=== PATIENT | female | born 1955 | race Caucasian/White ===

== ENCOUNTER → 2016-09-28 | Outpatient (CLI) | payer OTHER ==
[2016-09-28 12:07] LABS: HEMOGLOBIN 12.7 g/dL (11.7-16.4)
[2016-09-28 12:18] LABS: BLOOD UREA NITROGEN 14 mg/dL (7-18)
[2016-09-28 12:33] LABS: ASPARTATE AMINO TRANSFERASE 13 U/L (15-37)
== END | disposition home or self-care (01) ==
LOC: LAB 11:42
PROVIDERS: ATTEND Obstetrics & Gynecology
DX: E03.8 Other specified hypothyroidism (principal); R53.83 Other fatigue; R19.7 Diarrhea, unspecified
CPT/HCPCS: 36415; 80053; 80061; 84439; 84443; 84481; 85025

== ENCOUNTER → 2018-05-05 | Outpatient (CLI) | payer OTHER | END | disposition home or self-care (01) | LOC: CFH 07:10 | PROVIDERS: ATTEND Obstetrics & Gynecology | DX: Z12.31 Encounter for screening mammogram for malignant neoplasm of breast (principal) | CPT/HCPCS: 77067 ==

== ENCOUNTER → 2019-06-01 | Outpatient (CLI) | payer OTHER ==
[~2019-06-01] MED LIST: ASPI-496 PO; CHOL400T10 PO; ESTR0.5T PO; FEXO180T15 PO; FLUT9.9S NS; LACT1CAP37 PO; NIAC250T7 PO; ONDA4TAB7 PO; OXYC-306 PO; THYR60TA PO; VIT1CAPS42 PO; VITA200C7 PO; VITAMIN B TD
[2019-06-01 11:11] LABS: BASOPHILS # (AUTO) 0.03 x10^3/uL (0-0.1); BASOPHILS % (AUTO) 1 % (0-1); EOSINOPHILS # (AUTO) 0.05 x10^3/uL (0-0.4); EOSINOPHILS % (AUTO) 1 % (1-7); LYMPHOCYTES # (AUTO) 1.32 x10^3/uL (1-3.4); LYMPHOCYTES % (AUTO) 27 % (22-44); MD NO; MEAN CORPUSCULAR HEMOGLOBIN 32.8 pg (27.0-34.8); MEAN CORPUSCULAR HGB CONC 32.8 g/dL (32.4-35.8); MEAN PLATELET VOLUME 7.3 fL (7.4-10.4); MONOCYTES # (AUTO) 0.28 x10^3/uL (0.2-0.8); MONOCYTES % (AUTO) 6 % (2-9); NEUTROPHILS % (AUTO) 66 % (42-75); PLATELET COUNT 272 x10^3/uL (130-400); RED BLOOD COUNT 3.89 x10^6/uL (3.82-5.3); RED CELL DISTRIBUTION WIDTH 13.2 % (9.6-15.2)
[2019-06-01 11:23] LABS: ALANINE AMINOTRANSFERASE 27 U/L (12-78); ALBUMIN 3.5 g/dL (3.4-5.0); ANION GAP 8 mmol/L (5-15); CALCIUM 8.9 mg/dL (8.5-10.1); CHLORIDE 107 mmol/L (98-107); CREATININE 0.83 mg/dL (0.55-1.02)
[2019-06-01 11:25] LABS: ALKALINE PHOSPHATASE 73 U/L (45-117); BILIRUBIN,TOTAL 0.4 mg/dL (0.2-1.0)
== END | disposition home or self-care (01) ==
LOC: STAR 10:08
PROVIDERS: ATTEND Specialist
DX: N95.0 Postmenopausal bleeding (principal); Z90.710 Acquired absence of both cervix and uterus
CPT/HCPCS: 36415; 71046; 80053; 85025; 86304; 93005

== ENCOUNTER 2019-06-05 11:05 | Day surgery (SDC) | payer OTHER ==
[~2019-06-05] VITALS: Ht 172.7 cm; Wt 74.3 kg
[~2019-06-05 11:05] MED LIST changes: -ESTR0.5T PO; -FLUT9.9S NS; -ONDA4TAB7 PO; -OXYC-306 PO
[2019-06-05] MEDS ORDERED: LACTATED RINGERS 1,000 ML IV SCH (12:16)
[2019-06-05] MEDS ORDERED: FLUT9.9S NS (12:21)
[2019-06-05] MEDS ORDERED: ESTR0.5T PO (12:21)
[2019-06-05] MEDS ORDERED: CEFOTETAN PMX 2GM/50ML 50 ML IV ONE (13:00)
[2019-06-05] MEDS ORDERED: FENTANYL PF 250 MCG/5ML ONE (16:12)
[2019-06-05] MEDS ORDERED: MIDAZOLAM 1 MG/ML, 2ML ONE (16:12)
[2019-06-05] MEDS ORDERED: PROPOFOL 10 MG/ML, 20ML ONE (16:14)
[2019-06-05] MEDS ORDERED: DEXAMETHASONE 4 MG/ML, 1ML ONE (16:14)
[2019-06-05] MEDS ORDERED: SUGAMMADEX 200 MG/2 ML IVPush ONE (16:14)
[2019-06-05] MEDS ORDERED: ONDANSETRON 2MG/ML, 2ML ONE (16:14)
[2019-06-05] MEDS ORDERED: LIDOCAINE-MPF 2% ,5ML ONE (16:14)
[2019-06-05] MEDS ORDERED: ROCURONIUM 10MG/ML,5ML ONE (16:14)
[2019-06-05] MEDS ORDERED: BUPIVACAINE/PF 0.25% ONE (16:43)
[2019-06-05] MEDS ORDERED: PHENYLEPHRINE 10 MG/ML ONE (17:21)
[2019-06-05] MEDS ORDERED: KETOROLAC 30 MG/1 ML ONE (18:21)
[2019-06-05] MEDS ORDERED: ACETAMINOPHEN 325 MG TABLET PO PRN (18:30)
[2019-06-05] MEDS ORDERED: FENTANYL PF 100 MCG/2ML IV PRN (18:30)
[2019-06-05] MEDS ORDERED: PROMETHAZINE 25 MG/ML, 1ML IV PRN (18:30)
[2019-06-05] MEDS ORDERED: HYDROmorphone 2 MG/ML, 1ML IVPush PRN (18:30)
[2019-06-05] MEDS ORDERED: hydrALAzine 20 MG/ML, 1ML IV PRN (18:30)
[2019-06-05] MEDS ORDERED: MEPERIDINE/PF 25MG/ML,1ML IVPush PRN (18:30)
[2019-06-05] MEDS ORDERED: OXYcodone 5 MG/5 ML ORAL.SOL UDC PO PRN (18:30)
[2019-06-05] MEDS ORDERED: OXYcodone 5 MG/5 ML ORAL.SOL UDC ONE (19:11)
[2019-06-05] MEDS ORDERED: FENTANYL PF 100 MCG/2ML ONE (19:27)
[2019-06-05] MEDS ORDERED: OXYC-306 PO (21:00)
[2019-06-05] MEDS ORDERED: ONDA4TAB7 PO (21:01)
== END 2019-06-05 22:05 | disposition home or self-care (01) ==
LOC: OUT 11:05 → 3WST 19:50 → OUT 22:05
PROVIDERS: ATTEND Specialist
DX: N95.0 Postmenopausal bleeding (principal); N84.0 Polyp of corpus uteri; N88.2 Stricture and stenosis of cervix uteri; N80.0 Endometriosis of uterus; N94.89 Other specified conditions associated with female genital organs and menstrual cycle; G47.33 Obstructive sleep apnea (adult) (pediatric); E03.9 Hypothyroidism, unspecified; K21.9 Gastro-esophageal reflux disease without esophagitis; G50.0 Trigeminal neuralgia; Z79.890 Hormone replacement therapy; Z79.899 Other long term (current) drug therapy; Z88.5 Allergy status to narcotic agent; Z88.8 Allergy status to other drugs, medicaments and biological substances; Z98.890 Other specified postprocedural states
CPT/HCPCS: 36415; 58552; 86850; 86900; 86923; 88307; 88331; J1100; J1885; J2250; J2370; J2405; J2704; J3010; J3490; J7120; S2900; G0378

== ENCOUNTER → 2020-01-18 | Outpatient (CLI) | payer OTHER, MEDICARE ==
[~2020-01-18] MED LIST changes: +ESTR0.5T PO; +FLUT9.9S NS; +ONDA4TAB7 PO; +OXYC-306 PO
== END | disposition home or self-care (01) ==
LOC: CFH 11:23
PROVIDERS: ATTEND Family Medicine
DX: M85.88 Other specified disorders of bone density and structure, other site (principal); N95.8 Other specified menopausal and perimenopausal disorders; E03.9 Hypothyroidism, unspecified
CPT/HCPCS: 77080

== ENCOUNTER → 2020-05-02 | Outpatient (CLI) | payer OTHER | END | disposition home or self-care (01) | LOC: LAB 10:56 | PROVIDERS: ATTEND Obstetrics & Gynecology | DX: G43.909 Migraine, unspecified, not intractable, without status migrainosus (principal); G47.30 Sleep apnea, unspecified; E03.9 Hypothyroidism, unspecified; R92.2 Inconclusive mammogram; N39.3 Stress incontinence (female) (male); Z78.0 Asymptomatic menopausal state; Z79.890 Hormone replacement therapy | CPT/HCPCS: 36415; 82670; 83001 ==

== ENCOUNTER 2020-05-09 15:36 | Outpatient (CLI) | payer MEDICARE, OTHER | END 2020-05-09 23:59 | disposition home or self-care (01) | LOC: CFH 15:36 | PROVIDERS: ATTEND Obstetrics & Gynecology | DX: Z12.39 Encounter for other screening for malignant neoplasm of breast (principal); R92.2 Inconclusive mammogram | CPT/HCPCS: 76641; 77063; 77067 ==